=== PATIENT | female | born 1985 | race African-American/Black ===

== ENCOUNTER → 2024-07-01 10:18 | Outpatient (CLI) | payer OTHER, SELFPAY ==
[2024-07-01 12:53] LABS: Urine Chlamydia NOT DETECTED; Urine N gonorrhoeae NOT DETECTED
== END ==
PROVIDERS: Visit Provider Physician Assistant
DX: N89.8 Other specified noninflammatory disorders of vagina (principal)
CPT/HCPCS: 87210; 87491; 87591

== ENCOUNTER → 2024-07-23 15:16 | Outpatient (CLI) | payer OTHER, SELFPAY ==
--- NOTE | 2024-07-23 17:17 | DIAB.GDA ---
Initial Gestational Diabetes Assessment Name: Bernadine Tracey Date: 07/23/24 Time: 335-5p Dx: Type II Diabetes in Provider: Hellen FELIPE: 02/24/25 Weeks: 8-9 Bernadine presents for initial visit for T2DM in . Diagnosed last year per report with hgA1c of 7.2%. [place] Nov 2023 FH of DM with mother and both grandfathers. Started Metformin at diagnosis, however could not tolerate GI upset and changed to Jardiance x 2-3 days before finding out about and switched back to Metformin. Less GI upset since taking with due to constipation assoc with . Despite diet changes does have some elevated pc readings and FBG are consistently elevated. Today she is wanting to know more about nutrition, eating out, and how DM can impact baby. Prepregnancy was checking BG and ranged 80-120mg/dl per report with similar FBG. Has cut out soda and juice. Avoiding cereal and oatmeal, but wanting to know more about if she can incorporate this. Diet Recall: 630-730a: tea with honey 8a: turkey sausage and egg with coconut yogurt and small biscuit OR eggs wiht 4 lumpia 10-11a: granola bar OR trailmix OR fruit x 2 c OR yogurt 1230p: pasta x 1.5c with veggies and protein from home meal prep service 2p: nothing or remainder of fruit OR veggies 5-6p: same as lunch Trying not to eat in the evenings Water x 1 gallon coconut water x 12-24oz Anthropometrics: Ht: 67 Wt: 190# Prepregnancy wt: 190# Physical Activity: Walking dog x 30-60 mins Self-Monitoring Blood Glucose: Checking FBG and 2 hour pc. All FBG are elevated, 3/7 elevated pc breakfast, pc lunch and dinner missing data but in goal. Date Pre Post Pre Post Pre Post HS 07/16 97 07/17 114 230 116 114 07/18 104 144 100 07/19 99 95 07/20 115 100 89 07/21 118 116 79 07/22 109 124 106 07/23 111 99 112 Diabetes Medications: 500mg Metformin BID Pertinent Labs: Reported HgA1c 7.2% 2023 Nutrition Rx: Carbohydrates: Meal: 45-g lunch and dinner; 30g breakfast Snack: 15-30g Nutrition Diagnosis: Nutrition and food related knowledge deficit r/t needing guidance on DM MNT in aeb pt report and diet recall- new Self monitoring deficit r/t missed/forgot SMBG later in the day aeb pt report and SMBG tracking- new Intervention: This participant was very receptive. Provided appropriate educational handouts. Discussed the following topics: T2DM pathophysiology and impact of hyperglycemia on mom and baby Risk for T2DM for baby in the future and potential ways to reduce risk Plate Method, meal timing, carb counting, pairing macronutrients and spreading out CHO for better BG management Blood glucose goals (FBG: <95 and 1 hour <140 mg/dL or 2 hour <120mg/dl); importance of checking 4x per day (FBG and pc) Impact of macronutrients on blood glucose Recommended servings for carbohydrates at meals and snacks Brainstormed appropriate meal plan based on her food preferences Potential for insulin given FBG, brief review of insulin pen and injection technique Fast food intake and nutrition recs Role of physical activity and following provider guidelines for safety Goals: Check BG 4x per day Add protein to each meal/snack Buy some tajik yogurt for snack Follow-up: LEEANN VIRK follow-up in one week. RD will message OB recent BG readings. Giana Vasquez RDN, KADYES Certified Diabetes Care and Drafter Mechanical T: [phone] F: [phone] [email or web address] Thank you for this referral
== END ==
LOC: DIET 15:17
PROVIDERS: Referring Provider Specialist
DX: O24.111 Pre-existing type 2 diabetes mellitus, in pregnancy, first trimester (principal); Z3A.08 8 weeks gestation of pregnancy; Z71.3 Dietary counseling and surveillance
CPT/HCPCS: 97802

== ENCOUNTER → 2024-07-24 13:45 | Outpatient (CLI) | payer OTHER, SELFPAY ==
--- NOTE | 2024-07-24 15:25 | DIAB.GDFU ---
Follow-up Gestational Diabetes Assessment Name: Bernadine Tracey Date: 07/24/24 Time: 150-240p Dx: Gestational Diabetes Provider: Hellen FELIPE: 02/24/25 Weeks: 8-9 Bernadine presents for follow-up visit for T2DM in . Diagnosed last year per report with hgA1c of 7.2%. Has been rx'd insulin based on recent BG. Also rx'd CGM. Wanting to picker / packer today, we did troubleshoot where to picker / packer as there were some barriers with pharmacy. Needs education on insulin injection and CGM use. Anthropometrics: Ht: 67 Wt: 190# Prepregnancy wt: 190# Physical Activity: Walking dog x 30-60 mins Self-Monitoring Blood Glucose: Checking FBG and 2 hour pc. All FBG are elevated, 3/7 elevated pc breakfast, pc lunch and dinner missing data but in goal. Date Pre Post Pre Post Pre Post HS 07/16 97 07/17 114 230 116 114 07/18 104 144 100 07/19 99 95 07/20 115 100 89 07/21 118 116 79 07/22 109 124 106 07/23 111 99 112 Diabetes Medications: 500mg Metformin BID 10u Glargine-- not started yet 3u Lispro ac--- on hold Pertinent Labs: Reported HgA1c 7.2% 2023 Intervention: This participant was very receptive. Provided appropriate educational handouts. Discussed the following topics: CGM education, self placement and precautions Insulin dosing, injection technique, and insulin action s/s for lows and rule of 15 to treat Troubleshooting for insulin access Goals: Check BG 4x per day Add protein to each meal/snack Buy some south korean yogurt for snack Wear CGM Start Glargine Follow-up: LEEANN VIRK follow-up in in 4 days over the phone and 7 days in person. Giana Vasquez RDN, SULLY Certified Diabetes Care and Aluminum Boats Assembler T: [phone] F: [phone] [email or web address] Thank you for this referral
== END ==
LOC: DIET 13:46
PROVIDERS: Referring Provider Specialist
DX: O24.111 Pre-existing type 2 diabetes mellitus, in pregnancy, first trimester (principal); Z3A.08 8 weeks gestation of pregnancy; Z71.3 Dietary counseling and surveillance
CPT/HCPCS: G0108

== ENCOUNTER → 2024-07-30 13:49 | Outpatient (CLI) | payer OTHER, SELFPAY ==
--- NOTE | 2024-07-30 13:54 | DIAB.GDFU ---
Follow-up Gestational Diabetes Assessment Name: Bernadine Tracey Date: 07/30/24 Time: 2-245p Dx: Gestational Diabetes Provider: Jamil FELIPE: 02/24/25 Weeks: 9-10 Bernadine presents for follow-up visit for T2DM in . Diagnosed last year per report with hgA1c of 7.2%. Reports starting Glargine HS two nights ago. FBG improved but still >95mg/dl significantly. Will titrate tonight. Endorses cravings for sweets lately, ie jelly beans, whoppers. Noticed sweetened oats caused elevation, also was low in protein. Increased veggie intake a Likes veggie waffles with chicken sausage Diet recall: 8a: coconut water with meds, oatmeal pkt sweetened 9a: orange or apple 12p: carrots, berries, eng muffin with chicken and pb 2p: rice cake minis with salsa 830p: rios chickpeas, carrots, peas and 1/2c rice 1/2 gallon water Reports trying to move dinner earlier to 7p. Anthropometrics: Ht: 67 Wt: 190# Prepregnancy wt: 190# Physical Activity: Walking dog x 30-60 mins Self-Monitoring Blood Glucose: Wearing CGM. Reports indicate continued elevations in the morning. Pattern of elevations after breakfast as well. All FBG are elevated. All breakfast are elevated. Most lunch and dinner are elevated, though often just barely above or below 140mg/dl. Results based on CGM data after meals at highest peak and FBG as documented by pt. Hoping basal insulin will bring most of these numbers down, if not will initiate meal time insulin next week. Date Pre Post Pre Post Pre Post notes 07/25 132 148 135 147 07/26 110 164 168 07/27 123 169 140 155 07/28 121 193 140 141 started HS insulin 05/31 108 176 131 145 07/30 105 171 TIR: 0% very high 8% .140mg/dl 92% in range 0% low avmg/dl GMI: NA std dev: 16mg/dl variation: 13.7% Diabetes Medications: 500mg Metformin BID 10u Glargine 3u Lispro ac--- on hold Pertinent Labs: Reported HgA1c 7.2% 2023 Nutrition Rx: Carbohydrates: Meal: 45-g lunch and dinner; 30g breakfast Snack: 15-30g Nutrition Diagnosis: Nutrition and food related knowledge deficit r/t needing guidance on DM MNT in aeb pt report and diet recall- in progress Self monitoring deficit r/t missed/forgot SMBG later in the day aeb pt report and SMBG tracking- improved Inconsistent protein intake r/t nutrition knowledge deficit aeb pt report and diet recall- new Intervention: This participant was very receptive. Provided appropriate educational handouts. Discussed the following topics: Insulin titration schedule Different insulin delivery options Adding protein to each meal/snack Carb portions, especially at breakfast Simple carbs impact on BG Carb portions s/s for lows and rule of 15 to treat Troubleshooting for insulin access Goals: Check BG 4x per day- met Add protein to each meal/snack- in progress Buy some kinyarwanda yogurt for snack - in progress Wear CGM- met Start Glargine- met Increase HS insulin by 2-3 u q 2-3 days until FBG <95mg/dl, as discussed- new Add protein to breakfast- new Follow-up: LEEANN VIRK follow-up in one week in person and [address] will check CGM remotely and call pt prn. Giana Vasquez RDN, SULLY Certified Diabetes Care and Wireless Sales Consultant T: [phone] F: [phone] [email or web address] Thank you for this referral
== END ==
DX: O24.414 Gestational diabetes mellitus in pregnancy, insulin controlled (principal); Z3A.09 9 weeks gestation of pregnancy; Z71.3 Dietary counseling and surveillance
CPT/HCPCS: 97803

== ENCOUNTER → 2024-07-30 14:49 | Outpatient (CLI) | payer OTHER, SELFPAY ==
[2024-07-30 15:26] LABS: Add Manual Diff / Slide Review NO; Basophils Absolute Auto 100 /uL (0-100); Basophils Percent Auto 0.7 % (0-2); Eosinophils Absolute Auto 100 /uL (0-450); Eosinophils Percent Auto 1.5 % (2-4); Hematocrit 38.2 % (36-46); Hemoglobin 12.8 g/dL (12.0-16.0); Lymphocytes Absolute Auto 1700 /uL (1100-4500); Lymphocytes Percent Auto 18.6 % (25-40); Mean Corpuscular HGB Conc 33.6 % (30-36); Mean Corpuscular Hemoglobin 27.3 PG (26-34); Mean Corpuscular Volume 81.2 fL (80-100); Monocytes Absolute Auto 600 /uL (0-900); Monocytes Percent Auto 7.3 % (3-14); Neutrophils Absolute Auto 6400 /uL (1500-7000); Neutrophils Percent Auto 71.9 % (50-75); Platelet Count 227 X10^3/uL (150-400); Red Cell Distribution Width 15.4 % (11.6-14.8); White Blood Cell Count 8.9 X10^3/uL (4.5-11.0)
[2024-07-30 15:41] LABS: Hemoglobin A1C% w Est Avg Glu 5.6 % (4.0-6.0)
[2024-07-30 17:26] LABS: Hepatitis B Surface Antigen NEGATIVE s/c (NEGATIVE)
[2024-07-30 17:46] LABS: HIV 1 & 2 Ab/Ag 4th Gen Combo NEGATIVE (NEGATIVE); Hep C Virus Ab w/Reflex Quant NEGATIVE s/c (NEGATIVE)
[2024-08-01 04:36] LABS: RPR Screen Non Reactive (Non Reactive)
[2024-08-01 08:36] LABS: Varicella IgG Antibody Reactive (Non Reactive)
== END ==
PROVIDERS: Referring Provider Family Medicine; Visit Provider Family Medicine
DX: O09.521 Supervision of elderly multigravida, first trimester (principal); O24.414 Gestational diabetes mellitus in pregnancy, insulin controlled; Z3A.09 9 weeks gestation of pregnancy; Z71.3 Dietary counseling and surveillance
CPT/HCPCS: 36415; 80055; 83036; 86787; 86803; 86850; 86900; 86901; 87086; 87389; 97803

== ENCOUNTER → 2024-08-06 09:55 | Outpatient (CLI) | payer OTHER, SELFPAY ==
--- NOTE | 2024-08-14 16:43 | DIAB.GDFU ---
Addendum entered by Giana Vasquez 08/14/24 16:58: 08/14/24 remote check: FBG all <95mg/dl this week except one elevation of 106mg/dl. 3 total elevated postprandial readings, highest 166mg/dl. Otherwise, all <140mg/dl. RD f/u next week. Original Note: Follow-up Gestational Diabetes Assessment Name: Bernadine Tracey Date: 08/06/24 Time: 910-1025 Dx: Type II Diabetes in Provider: Jamil FELIPE: 02/24/25 Weeks: Alicia Colindres presents for follow-up visit for T2DM in . Diagnosed last year per report with hgA1c of 7.2%. Reports up to 16u of basal insulin. Has experienced a low of 66mg/dl, not documented in TIR. Treated with candy. Reports recent breakfast with protein, yogurt and protein waffles. low appetite lately between lunch and dinner. Not use to normally eating so consistently per report. having some cravings for eating out, ie burger. Anthropometrics: Ht: 67 Wt: 190# Prepregnancy wt: 190# Physical Activity: Walking dog x 30-60 mins Self-Monitoring Blood Glucose: Wearing CGM. Similar TIR as last visit. Wearing sample CGM. BG below gleaned from CGM reports indicates elevated BG are frequent. Postprandial are recorded as highest reading in the 1-2 hour range. may need to calibrate CGM. Recommend some fingersticks, especially for FBG. Encouraged titration of insulin to cover FBG. Date Pre Post Pre Post Pre Post notes 07/31 105 147 127 151 08/01 110 141 199 08/02 109 150 151 175 08/03 119 169 08/04 100 141 141 131 08/05 86 142 122 161 08/06 95 136 152 154 TIR: 0% very high 8% .140mg/dl 92% in range 0% low avmg/dl GMI: 6% std dev: 18mg/dl variation: 15.6% Last TIR: 0% very high 8% .140mg/dl 92% in range 0% low avmg/dl GMI: NA std dev: 16mg/dl variation: 13.7% Diabetes Medications: 500mg Metformin BID 16u Glargine 3u Lispro ac--- on hold Pertinent Labs: Reported HgA1c 7.2% 2023 Nutrition Rx: Carbohydrates: Meal: 45-g lunch and dinner; 30g breakfast Snack: 15-30g Nutrition Diagnosis: Nutrition and food related knowledge deficit r/t needing guidance on DM MNT in aeb pt report and diet recall- in progress Inconsistent protein intake r/t nutrition knowledge deficit aeb pt report and diet recall- improved Intervention: This participant was very receptive. Provided appropriate educational handouts. Discussed the following topics: Insulin titration schedule Troubleshooting CGM access Protein shake and snack options Eating out strategies Calibration of CGM Goals: Increase HS insulin by 2-3 u q 2-3 days until FBG <95mg/dl, as discussed- continue Add protein to breakfast- met Log in francine: insulin amt and FBG - new Check a few FBG to calibrate- new Ask base pharmacy for G7 - new Try a burger in moderation- new Follow-up: LEEANN VIRK follow-up in one week via messaging prn after RD checks CGM results remotely and two weeks in person 1:1. Giana Vasquez RDN, SULLY Certified Diabetes Care and Supervisor Fabrication And Assembly T: [phone] F: [phone] [email or web address] Thank you for this referral
== END ==
LOC: DIET 09:56
PROVIDERS: Referring Provider Specialist
DX: O24.111 Pre-existing type 2 diabetes mellitus, in pregnancy, first trimester (principal); Z3A.11 11 weeks gestation of pregnancy; Z71.3 Dietary counseling and surveillance
CPT/HCPCS: 97803

== ENCOUNTER → 2024-08-12 14:04 | Outpatient (CLI) | payer OTHER, SELFPAY ==
[2024-08-12 16:48] LABS: Natera Collection Specimen Collected
== END ==
PROVIDERS: Referring Provider Obstetrics & Gynecology; Visit Provider Obstetrics & Gynecology
DX: O09.521 Supervision of elderly multigravida, first trimester (principal); Z3A.10 10 weeks gestation of pregnancy
CPT/HCPCS: 36415

== ENCOUNTER → 2024-08-18 09:15 | Outpatient (CLI) | payer OTHER, SELFPAY ==
--- NOTE | 2024-08-18 09:35 | DIAB.GDFU ---
Addendum entered by Giana Vasquez 09/01/24 17:09: Received email from pt and reviewed CGM data. FBG mostly in goal and continues with 15u HS basal insulin. Some elevated postprandial numbers, particularly after breafast lately. May need to consider meal time insulin, but pt is currently on vacation and forgot meal time insulin pen at home. Has not needed prandial insulin as of yet. RD f/u in one week. Original Note: Follow-up Gestational Diabetes Assessment Name: Bernadine Tracey Date: 08/18/24 Time: 075-948a Dx: Type II Diabetes in Provider: Jamil FELIPE: 02/24/25 Weeks: sa presents for follow-up visit for T2DM in . Diagnosed last year per report with hgA1c of 7.2%. Reports up to 16u of basal insulin. Increased by 1u last night, and noticed some lows on CGM. States she felt fine. lows per CGM report in the 60s. She treated with jelly beans. Did not check with finger stick to confirm. Previous FBG were in goal, so likely can go back to 15u to avoid lows. Tried her craving for a burger and BG was in goal. In general, feeling less interested in food. Slight nausea reported as well. Foods that she can eat per report: yogurt, fries, fruit, smoothie. Having difficulty finding protein shake discussed last visit. Trying a premade meal service to reduce meal prep. Planning to go on a trip to see family in [place]. Niece is graduating high school. States eating may be different that week. Due to her trip will have to move visit for 3 weeks, instead of [address] will check her CGM 1x pre week over the next two weeks and call her for insulin adjustments prn. She will also messaged RD in two weeks about how she feels things are going. Anthropometrics: Ht: 67 Wt: 189# 08/12/2024 190# 07/16/2024 Prepregnancy wt: 190# Physical Activity: Walking dog x 30-60 mins Self-Monitoring Blood Glucose: Wearing CGM. Improved TIR since last visit. Wearing rx CGM. Getting CGM q 10 days from pharmacy due to insurance barriers. Plans to check the base pharmacy to better access, ie monthly. BG below gleaned from CGM reports indicates elevated BG are frequent. Postprandial are recorded as highest reading in the 1-2 hour range. 2/7 elevated FBG, 2/6 elevated pc breakfast, 1/6 elevated pc lunch, 3/3 elevated pc dinner. Improved BG the last 3-4 days. Date Pre Post Pre Post Pre Post notes 08/12 85 122 120 161 /8 106 165 142 141 /9 93 147 122 164 /10 96 111 106 112 / 80 131 115 08/17 87 124 98 127 08/18 74 117 TIR: 0% very high 4% .140mg/dl 96% in range 0% low avmg/dl GMI: 5.8% std dev: 17mg/dl variation: 16.9% Last TIR: 0% very high 8% .140mg/dl 92% in range 0% low avmg/dl GMI: 6% std dev: 18mg/dl variation: 15.6% Diabetes Medications: 500mg Metformin BID 15-16u Glargine 3u Lispro ac--- on hold Pertinent Labs: Reported HgA1c 7.2% 2023 Intervention: This participant was very receptive. Provided appropriate educational handouts. Discussed the following topics: Insulin titration schedule Troubleshooting CGM access Protein shake types and access Strategies for going on vacation with insulin Goals: Log in francine: insulin amt and FBG - met Check a few FBG to calibrate- met Ask base pharmacy for G7 - in progress Try a burger in moderation- met Reduce back to 15u at this time given lows this morning- new Take one mealtime insulin pen on trip- new Follow-up: LEEANN VIRK follow-up in one and two weeks via messaging after RD checks CGM results remotely and three weeks in person 1:1 due to her vacation. Giana Vasquez RDN, SULLY Certified Diabetes Care and Master Welder T: [phone] F: [phone] [email or web address] Thank you for this referral
== END ==
DX: O24.111 Pre-existing type 2 diabetes mellitus, in pregnancy, first trimester (principal); Z3A.13 13 weeks gestation of pregnancy; Z71.3 Dietary counseling and surveillance; Z79.84 Long term (current) use of oral hypoglycemic drugs; Z79.4 Long term (current) use of insulin
CPT/HCPCS: G0108

== ENCOUNTER → 2024-09-09 11:10 | Outpatient (CLI) | payer OTHER, SELFPAY ==
--- NOTE | 2024-09-09 14:08 | DIAB.GDFU ---
Follow-up Gestational Diabetes Assessment Name: Bernadine Tracey Date: 09/09/24 Time: 1115-12 Dx: Type II Diabetes in Provider: Jamil FELIPE: 02/24/25 Weeks: 16 Bernadine presents for follow-up visit for T2DM in . Diagnosed last year per report with hgA1c of 7.2%. Just back from her trip to see family. Was short by one day with insulin pen needles. Skipped dose one day and BG were elevated after each meal that day during travel. Since that time BG have improved but pc numbers still frequently elevated indicating potential need for meal time insulin. Difficult to determine if BG will improve now that she is back from vacation or if she does need insulin at meals. Reports up to 16u of basal insulin. Increased by 1u recently due to concerns for elevated BG mid day previos days. No FBG <70. some elevated after meal numbers, some r/t food choices and others may be more r/t hormones. Appetite limited due to nausea and sensitivity to scents. Endorses limited acceptable foods at this time, ie fruit, oats, veggies, salads States she is concerned about celiac disease due to bloating. Does not indicate any particular food, ie wheat, associated with bloat. May or may not be r/t . Endorses some constipation and other times soft BM. Diet recall: B: oatmeal and burrito OR 2 small oranges and yogurt OR nothing L: salad +/- small serving of lasagna D: ice cream and chips OR salad +/- small serving of lasagna Anthropometrics: Ht: 67 Wt: 189# 08/12/2024 190# 07/16/2024 Prepregnancy wt: 190# Physical Activity: not discussed today Self-Monitoring Blood Glucose: Wearing CGM. TIR shows increase in hyperglycemia, evident in pc readings. Some lows recorded, however they do seem like false lows. She denies any low symptoms. Has not tested to confirm lows, but seems to get more lows when changing out her sensor. BG below gleaned from CGM reports indicates elevated BG are frequentafter meals, especially breakfast. Postprandial are recorded as highest reading in the 1-2 hour range. 0/7 elevated FBG, 4/5 elevated pc breakfast, 3/6 elevated pc lunch, 3/6 elevated pc dinner. Date Pre Post Pre Post Pre Post notes 09/03 67 167 144 149 09/04 88 129 125 09/05 97 163 164 145 09/06 88 185 161 220 elevations r/t no insulin the night before 09/07 91 127 120 09/08 88 176 139 139 breakfast high CHO intake 09/09 95 132 TIR: 0% very high 7% .140mg/dl 92% in range 1% low avmg/dl GMI: 5.8% std dev: 22mg/dl variation: 21.2% Last TIR: 0% very high 4% .140mg/dl 96% in range 0% low avmg/dl GMI: 5.8% std dev: 17mg/dl variation: 16.9% Diabetes Medications: 500mg Metformin BID 15-16u Glargine 3u Lispro ac--- on hold Pertinent Labs: Reported HgA1c 7.2% 2023 Nutrition Rx: Carbohydrates: Meal: 45-g lunch and dinner; 30g breakfast Snack: 15-30g Nutrition Diagnosis: Nutrition and food related knowledge deficit r/t needing guidance on DM MNT in aeb pt report and diet recall- in progress Intervention: This participant was very receptive. Provided appropriate educational handouts. Discussed the following topics: Insulin titration schedule Potential for adding meal time insulin to breakfast, possibly other meals Checking BG when low but feeling no symptoms Breakfast portions and CHO recs RUle of 15 for low tx review Review of celiac as allergy to gluten/wheat encouraged further discussion with OB r/t excessive bloat BM changes during and recs Review of BG goals and potential for meal time insulin if pc readings >140mg/dl at 1 hour or >120mg/dl at 2 hour Goals: Reduce back to 15u at this time given lows this morning- met/d/c Take one mealtime insulin pen on trip- not met Stay at 16u HS- new Consider adding 2-3 u at breakfast of ac insulin- new Try to keep breakfast at 30g CHO- new Carry low BG tx on you- new Follow-up: LEEANN VIRK follow-up in two weeks, RD out of town next week. Encouraged her to call/message OB office for BG concerns next week prn. She agreed with this plan. Giana Vasquez RDN, SULLY Certified Diabetes Care and Recovery Operator Helper T: [phone] F: [phone] [email or web address] Thank you for this referral
== END ==
DX: O24.112 Pre-existing type 2 diabetes mellitus, in pregnancy, second trimester (principal); Z3A.16 16 weeks gestation of pregnancy; Z71.3 Dietary counseling and surveillance
CPT/HCPCS: 97803

== ENCOUNTER → 2024-09-09 15:06 | Outpatient (CLI) | payer OTHER, SELFPAY ==
[2024-09-12 20:41] LABS: AFP Value 47.1 ng/mL (.); Insulin Dep Diabetes Yes (.); OSBR Risk 1IN 647 (.); Results Report (.); Test Results *Screen Negative* (.)
== END ==
LOC: LAB 15:09
PROVIDERS: Referring Provider Obstetrics & Gynecology; Visit Provider Obstetrics & Gynecology
DX: O24.112 Pre-existing type 2 diabetes mellitus, in pregnancy, second trimester (principal); Z3A.16 16 weeks gestation of pregnancy; Z71.3 Dietary counseling and surveillance
CPT/HCPCS: 36415; 82105; 97803

== ENCOUNTER 2024-09-24 15:10 | Emergency (ER) | payer OTHER, SELFPAY ==
[2024-09-24 15:19] VITALS: BP 138/93; PULSE 85; RESP 16; TEMP 36.9; O2SAT 100; BMI 29.7
--- NOTE | 2024-09-24 16:00 | DI.US.S_ITS ---
PROCEDURE: US OB >= 14 WEEKS FETUS INDICATIONS: abd cramping OUTSIDE/PRIOR DATING DATA: Working FELIPE of 02/24/2025. TECHNIQUE: Real-time scanning was performed of the fetus, with image documentation and biometric measurements. COMPARISON: [facility], US, US OB <= 14 WEEKS FETUS, 08/12/2024, 15:20. FINDINGS: General: A single living intrauterine gestation is present. Presentation: Breech. Placenta: Placental position is anterior , without previa. Amniotic fluid index: 15.9 cm, normal range is 5-24 cm. Single deepest vertical pocket is 5.7 cm. heart rate: 149 beats per minute. Maternal cervical canal: 3.8 cm long. Normal lower limit is 2.5 cm. biometrics: Clinically estimated gestational age: 18 weeks 1 day IMPRESSION: Single live intrauterine measuring 18 weeks 1 day. [place] is within normal limits. We strive to produce accurate, complete, and clear reports of imaging services. To assist us in improving patient care, this report was composed using standard report templates and voice recognition software. Therefore, it may contain abnormal punctuation, insertions and/or omissions. Occasional wrong-word or sound-alike substitutions may occur. Though we review the report and make efforts to correct it, we do recommend that the report be read carefully in proper context to recognize any text inaccuracies. Dictated by: Katt Perez M.D. on 09/24/2024 at 16:55 Approved by: Katt Perez M.D. on 09/24/2024 at 16:56
[2024-09-24 16:21] LABS: Add Manual Diff / Slide Review NO; Basophils Absolute Auto 100 /uL (0-100); Basophils Percent Auto 0.9 % (0-2); Eosinophils Absolute Auto 100 /uL (0-450); Hematocrit 38.5 % (36-46); Hemoglobin 12.9 g/dL (12.0-16.0); Lymphocytes Absolute Auto 1400 /uL (1100-4500); Lymphocytes Percent Auto 16.5 % (25-40); Mean Corpuscular HGB Conc 33.5 % (30-36); Mean Corpuscular Hemoglobin 27.6 PG (26-34); Mean Corpuscular Volume 82.2 fL (80-100); Monocytes Absolute Auto 600 /uL (0-900); Monocytes Percent Auto 7.2 % (3-14); Neutrophils Absolute Auto 6500 /uL (1500-7000); Neutrophils Percent Auto 74.4 % (50-75); Platelet Count 207 X10^3/uL (150-400); Red Blood Cell Count 4.69 X10^6/uL (4.0-5.2); Red Cell Distribution Width 15.4 % (11.6-14.8); White Blood Cell Count 8.8 X10^3/uL (4.5-11.0)
[2024-09-24 16:34] LABS: Alanine Aminotransferase 16 IU/L (<35); Albumin 4.4 g/dL (3.5-5.0); Albumin Globulin Ratio 1.3 (1.0-2.8); Alkaline Phosphatase 72 U/L (38-126); Aspartate Aminotransferase 26 IU/L (14-36); BUN Creatinine Ratio 11.9 (6-22); Bilirubin Total 0.9 mg/dL (0.2-1.3); Blood Urea Nitrogen 7 mg/dL (7-17); Calcium 9.7 mg/dL (8.4-10.2); Carbon Dioxide 22 mmol/L (22-32); Chloride 104 mmol/L (98-107); Estimated Glomerular Filt Rate > 60 mL/min (>60); Globulin 3.5 g/dL (1.7-4.1); Glucose 87 mg/dL (70-99); HEMOLYSIS < 15 (0-50); Potassium 3.6 mmol/L (3.4-5.1); Sodium 135 mmol/L (137-145); Total Protein 7.9 g/dL (6.3-8.2)
--- NOTE | 2024-09-24 16:53 | ED_ITS ---
HPI - Abdominal Pain General Chief Complaint: Abdominal Pain Stated Complaint: severe cramping 18 wks Time Seen by Provider: 09/24/24 16:16 Source: patient Mode of arrival: Wheelchair History of Present Illness HPI narrative: 39-year-old female type 2 diabetic on insulin and metformin, 18 weeks FELIPE February 24 was going to the dietitian appointment today when she did not realize she was experiencing contractions described as tightness cramping sensation but no vaginal bleeding or passing clots at this time and no urinary complaints. Patient denies fever chills chest pain nausea or vomiting diarrhea. No complications with that is far. Other than what is stated 14 point review of system is negative Related Data Home Medications ?Medication ?Instructions ?Recorded ?Confirmed jardiance PO 07/01/24 08/12/24 sertraline 25 mg tablet 75 mg PO DAILY 07/01/2410/30 Lactobacillus rhamnosus GG 5 1 tab PO DAILY 07/08/24 0 08/12/24 billion cell chewable tablet (Hair ScynceZytoprotecs Probiotics) cholecalciferol (vitamin D3) 50 50 mcg PO DAILY 08/12/24 mcg (2,000 unit) capsule inositol 500 mg capsule 1,000 mg PO 07/08/24 5 metformin 500 mg tablet 500 mg PO BID 07/08/2408/12 vitamin-ferrous sulfate tab PO 07/08/2408/12 27 mg iron-folic acid 0.8 mg tablet Previous Rx's ?Medication ?Instructions ?Recorded metronidazole 500 mg tablet 500 mg PO BID #14 tabs dexcom G7GM sensor #3 ea 07/24/24 insulin glargine 100 unit/mL (3 10 unit (0.1 mL) SUBCU T QPM 07/24/24 mL) subcutaneous pen (Lantus Control of blood sugar #3 mL Solostar U-100 Insulin) insulin lispro 100 unit/mL 3 unit (0.03 mL) SUBCUT TID #15 mL 07/27/24 subcutaneous pen pen needle, diabetic 32 gauge x #100 ea 07/27/24 (Advocate Pen Needle) aspirin 81 mg tablet,delayed 81 mg PO DAILY #90 tabs 0 08/12/24 release insulin glargine 100 unit/mL (3 15 unit (0.15 mL) SUBC UT QPM #15 mL 08/12/24 mL) subcutaneous pen (Lantus Solostar U-100 Insulin) Allergies Allergy/AdvReac Type Severity Reaction Status Date / Time apple Allergy Mild ITCHING Verified 09/24/24 15:18 Review of Systems Review of Systems ROS Unobtainable: All systems reviewed & are unremarkable except as noted in HPI and below Patient History Medical History (Updated 09/24/24 @ 17:48 by Pascual Brown DO) Allergies (~2001) Shoulder pain Fractures Chicken pox Gonorrhea Abnormal Pap smear of cervix Sickle cell trait (~2013) Depression with anxiety Seasonal allergies Type 2 diabetes mellitus (~2023) Closed head injury Asthma (~1992) Surgical History (Updated 07/08/24 @ 09:51 by Abby Tavarez RN) History of third molar tooth extraction History of dental surgery Family History (Updated 08/10/24 @ 20:57 by Isis Dawn) Mother Hypertension Hyperlipidemia Diabetes mellitus Depression Anxiety Atrial fibrillation Heart murmur Pacemaker History of hysterectomy Menorrhagia Mental health problem Father Hypertension Joint disease Arthritis Family/Other History of bilateral mastectomy Breast cancer Aunt ADHD Brother Congenital heart defect Grandfather Diabetes mellitus Hyperlipidemia Hypertension Stroke Grandmother Cancer Grandfather Cataracts, bilateral Prostate cancer Diabetes mellitus Glaucoma Dementia Hypertension Grandmother Glaucoma Status post cholecystectomy Hypertension Social History marital status: unmarried,single number of children: 0 household members: spouse lives independently: Yes caregiver/support person: No housing: apartment pets and animals: Yes (dog) education level: college (some college) 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[employer], 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) current occupational exposures/hazards: No (not since becoming ) special gucci needs: No travel history: recent (domestic only) seatbelt use: always water heater temp set < 120 deg: Yes working smoke detector in home: Yes fire extinguisher in home: Yes carbon monox detector in home: Yes firearms in home: No do you feel safe at home: Yes Tobacco: How many years used: 18 second hand exposure: No alcohol intake: former (very occasionally when not ) substance use type: does not use during the past year weight has: increased > 10 lbs well-balanced diet: rarely or never daily servings fruits/ve-1 (1-2) caffeine: Yes (2-3 cup black or green tea/day) Type(s) of exercise: walking Smoking Status: Former smoker Exam Narrative Exam Narrative: GENERAL: [39] year old patient appears stated age. Well-developed patient, in mild distress. HEAD: Atraumatic. Normocephalic. EYES: Pupils equal round and reactive. Extraocular motions intact. No scleral icterus. No injection or drainage. NECK: Trachea midline. Non tender CARDIOVASCULAR: Regular rate and rhythm without murmurs, gallops, or rubs. RESPIRATORY: Clear to auscultation. Breath sounds equal bilaterally. No wheezes, rales, or rhonchi. GASTROINTESTINAL: Abdomen soft, non-tender, nondistended. EXTREMITIES: No edema or joint tenderness. BACK: Nontender without deformity or crepitance. No flank tenderness. NEURO: AOx3. SKIN: No rash or erythema of visible areas Initial Vital Signs Initial Vital Signs: Vital Signs Temperature 98.5 F 09/24/24 15:19 Pulse Rate 85 09/24/24 15:19 Respiratory Rate 16 09/24/24 15:19 Blood Pressure 138/93 H 09/24/24 15:19 Pulse Oximetry 100 09/24/24 15:19 Oxygen Delivery Method Room Air 09/24/24 15:19 Course Orders Ordered: ED Orders 09/24/24 16:00 US OB >= 14 weeks Fetus Stat 09/24/24 16:11 Complete Blood Count AUTO DIFF Stat Comprehensive Metabolic Panel Stat HCG Quantitative /Beta subunit Stat Type and Screen Stat Vital Signs Vital signs: Vital Signs - 8 hr 09/24/24 15:19 Temperature 98.5 F Pulse Rate 85 Respiratory Rate 16 Blood Pressure 138/93 H Pulse Oximetry 100 Oxygen Delivery Method Room Air MDM - Abdominal Pain Lab Data 09/24/24 16:11 09/24/24 16:11 Labs: Lab Results 09/24/24 Range/Units 16:11 WBC 8.8 (4.5-11.0) X10^3/uL RBC 4.69 (4.0-5.2) X10^6/uL Hgb 12.9 (12.0-16.0) g/dL Hct 38.5 (36-46) % MCV 82.2 (80-100) fL MCH 27.6 (26-34) PG MCHC 33.5 (30-36) % RDW 15.4 H (11.6-14.8) % Plt Count 207 (150-400) X10^3/uL Neut % (Auto) 74.4 (50-75) % Lymph % (Auto) 16.5 L (25-40) % [place] % (Auto) 7.2 (3-14) % Eos % (Auto) 1.0 L (2-4) % Baso % (Auto) 0.9 (0-2) % Neut # (Auto) 6500 (4581-1947) /uL Lymph # (Auto) 1400 (0032-3978) /uL [place] # (Auto) 600 (0-900) /uL Eos # (Auto) 100 (0-450) /uL Baso # (Auto) 100 (0-100) /uL Sodium 135 L (137-145) mmol/L Potassium 3.6 (3.4-5.1) mmol/L Chloride 104 (98-107) mmol/L Carbon Dioxide 22 (22-32) mmol/L BUN 7 (7-17) mg/dL Creatinine 0.59 (0.52-1.04) mg/dL Estimated GFR > 60 (>60) mL/min BUN/Creatinine Ratio 11.9 (6-22) Glucose 87 (70-99) mg/dL Calcium 9.7 (8.4-10.2) mg/dL Total Bilirubin 0.9 (0.2-1.3) mg/dL AST 26 (14-36) IU/L ALT 16 (<35) IU/L Alkaline Phosphatase 72 (38-126) U/L Total Protein 7.9 (6.3-8.2) g/dL Albumin 4.4 (3.5-5.0) g/dL Globulin 3.5 (1.7-4.1) g/dL Albumin/Globulin Ratio 1.3 (1.0-2.8) HCG, Quant 31724 mIU/mL Blood Type B Positive Antibody Screen Negative Point of care testing: Urine Dip Bedside Urine Glucose Negative Bedside Urine Bilirubin - Negative Bedside Urine Ketone - Negative Urine Specific [place] 1.010 Bedside Urine Occult Blood - Negative Bedside Urine pH 7.5 Bedside Urine Protein - Negative Bedside Urine Urobilinogen - Negative Bedside Urine Nitrite - Negative Bedside Urine Leukocytes - Negative Esterase Imaging Data US - abdomen: Radiologist's Impression: [address] [address] Ultrasound Report Signed Patient: Bernadine Tracey MR#: [id number] : 1985 Acct:[id number] Age/Sex: 39 / F Date of Service: 09/24/24 Loc: ED Accession Number: [id number] Procedure: US OB >= 14 weeks Fetus Ordering Provider: Pascual Brown D.O. PROCEDURE: US OB >= 14 WEEKS FETUS INDICATIONS: abd cramping OUTSIDE/PRIOR DATING DATA: Working FELIPE of 02/24/2025. TECHNIQUE: Real-time scanning was performed of the fetus, with image documentation and biometric measurements. COMPARISON: [facility], [place], US OB <= 14 WEEKS FETUS, 08/12/2024, 15:20. FINDINGS: General: A single living intrauterine gestation is present. Presentation: Breech. Placenta: Placental position is anterior , without previa. Amniotic fluid index: 15.9 cm, normal range is 5-24 cm. Single deepest vertical pocket is 5.7 cm. heart rate: 149 beats per minute. Maternal cervical canal: 3.8 cm long. Normal lower limit is 2.5 cm. biometrics: Clinically estimated gestational age: 18 weeks 1 day IMPRESSION: Single live intrauterine measuring 18 weeks 1 day. NEWTON is within normal limits. We strive to produce accurate, complete, and clear reports of imaging services. To assist us in improving patient care, this report was composed using standard report templates and voice recognition software. Therefore, it may contain abnormal punctuation, insertions and/or omissions. Occasional wrong-word or sound-alike substitutions may occur. Though we review the report and make efforts to correct it, we do recommend that the report be read carefully in proper context to recognize any text inaccuracies. Dictated by: Katt Perez M.D. on 09/24/2024 at 16:55 MDM Narrative Medical decision making narrative: Vital signs, nurse triage note, medication list, previous ER visits, and all imaging modalities reviewed. Beta quant 33,943 hemoglobin 12.9 LFTs all known sodium 135. Differential diagnosis includes uterine contraction, UTI, constipation, normal . Follow up with OB at next scheduled appointment Discharge Plan Departure Patient Disposition: Home Clinical Impression: Uterine contractions Qualifiers: Weeks of gestation: less than 8 weeks Qualified Code(s): Z3A.01 - Less than 8 weeks gestation of Instructions: Managing Symptoms of Activity Restrictions/Additional Instructions: Return with new or worsening symptoms. Follow up with OBGYN your next scheduled appointment. Prescriptions: No Action sertraline 25 mg tablet 75 mg PO DAILY jardiance PO metronidazole 500 mg tablet 500 mg PO BID Qty: 14 0RF insulin glargine [Lantus Solostar U-100 Insulin] 100 unit/mL (3 mL) insulin pen 10 unit SUBCUT QPM Qty: 3 3RF (DME) dexcom G7GM sensor See Rx Instructions .Route .MEDSUPPLY Qty: 3 6RF Rx Instructions: Change out every 10 days. (DME) pen needle, diabetic [Advocate Pen Needle] 32 gauge x 5/32 needle See Rx Instructions .Route Qty: 100 0RF Rx Instructions: As directed insulin lispro 100 unit/mL insulin pen 3 unit SUBCUT TID Qty: 15 3RF cholecalciferol (vitamin D3) 50 mcg (2,000 unit) capsule 50 mcg PO DAILY metformin 500 mg tablet 500 mg PO BID Culturelle Kids Probiotics 5 billion cell tablet,chewable 1 tab PO DAILY inositol 500 mg capsule 1,000 mg PO vit-ferrous sulfat-FA 27 mg iron- 0.8 mg tablet PO insulin glargine [Lantus Solostar U-100 Insulin] 100 unit/mL (3 mL) insulin pen 15 unit SUBCUT QPM Qty: 15 3RF aspirin 81 mg tablet,delayed release (DR/EC) 81 mg PO DAILY Qty: 90 3RF Referrals: ProviderJessica [Primary Care Provider, Family Practice] Stand Alone Forms: Patient Portal/API
[2024-09-24 17:15] LABS: HCG Quantitative /Beta subunit 33943 mIU/mL
[2024-09-24 17:54] VITALS: BP 141/94; PULSE 73; O2SAT 100
== END 2024-09-24 17:54 | disposition home or self-care (01) ==
PROVIDERS: Emergency Provider Family Medicine
DX: O26.892 Other specified pregnancy related conditions, second trimester (principal); N85.8 Other specified noninflammatory disorders of uterus; Z3A.18 18 weeks gestation of pregnancy
CPT/HCPCS: 76811; 80053; 81003; 84702; 85025; 86850; 86900; 86901; 99281; 99283

== ENCOUNTER → 2024-09-29 14:48 | Outpatient (CLI) | payer OTHER, SELFPAY ==
--- NOTE | 2024-10-01 10:46 | DIAB.GDFU ---
Addendum entered by Giana Vasquez 10/06/24 17:17: 10/06/24: called patient to review CGM reports and insulin dosing. Left a VM to return call when available. BG improved, but this week still having a few elevations after meals without documented meal time insulin doses in CGM. Unclear if doses are skipped or undocumented. FBG seemed to have improved this week with most 72-95mg/dl. F/u with RD on 10/15. Original Note: Follow-up Gestational Diabetes Assessment Name: Bernadine Tracey Date: 09/29/24 Time: 3-4p Dx: Type II Diabetes in Provider: Jamil FELIPE: 02/24/25 Weeks: Hilaria Colindres presents for follow-up visit for T2DM in . Diagnosed last year per report with hgA1c of 7.2%. Last visit was cancelled due to pt experiencing pain, RD took her to the ED upon center recommendation, and she was found to have been experiencing contractions. Reports this did end up resolving same day. Continues at 16u HS. Has not yet added meal time insulin but based on BG likely needs to add this. Last visit we did discuss adding to breakfast. States she is trying to stay well hydrated. Endorses frequent urination. Reports worrying about getting enough nutrients and kcals since she has not gained wt. Has not had any recent wt loss. Likely getting enough nutrients. Diet recall: 8a: Latvian yogurt OR overnight oats x 1/2 c with 2 mandarin oranges 10a: charlie or two mandarins 1130a: salad OR warmed up cold cut sandwich 26-53g CHO +/- 3oz chips and occasional sweet tea 2-3p: yogurt with kiwi 7-8p: other part of cold cut sandwich OR chx salad Caesar OR rice x 1c with kale and shrimp 730-830p: popcorn 80-100oz water adding coconut water and pineapple juice to water for electrolytes per report Did have low na lab, and trying to improve electrolyte intake per report Anthropometrics: Ht: 67 Wt: 189# 08/12/2024 190# 07/16/2024 Prepregnancy wt: 190# Physical Activity: not discussed today Self-Monitoring Blood Glucose: Wearing CGM. TIR shows increase in hyperglycemia, evident in pc readings. Some elevated FBG >95 as well. Encouraged low dose meal time insulin start. Would also benefit from increased evening dose. FBG up from last visit significantly. TIR: 0% very high 14% .140mg/dl 86% in range 0% low <1% very low avmg/dl GMI: 6.1% std dev: 22mg/dl variation: 19.5% Last TIR: 0% very high 7% .140mg/dl 92% in range 1% low avmg/dl GMI: 5.8% std dev: 22mg/dl variation: 21.2% BG below gleaned from CGM reports indicates elevated BG are frequent. Postprandial are recorded as highest reading in the 1-2 hour range. 4/7 elevated FBG, 4/4 elevated pc breakfast, 3/5 elevated pc lunch, 4/5 elevated pc dinner. Today: Date Pre Post Pre Post Pre Post notes 09/23 95 141 154 144 09/24 110 140 189 09/25 111 168 143 09/26 166 122 140 09/27 134 162 173 196 09/28 109 153 156 09/29 92 Last Visit: Date Pre Post Pre Post Pre Post notes 09/03 67 167 144 149 09/04 88 129 125 09/05 97 163 164 145 09/06 88 185 161 220 elevations r/t no insulin the night before 09/07 91 127 120 09/08 88 176 139 139 breakfast high CHO intake 09/09 95 132 Diabetes Medications: 500mg Metformin BID 16u Glargine 3u Lispro ac--- on hold Pertinent Labs: Reported HgA1c 7.2% 2023 Nutrition Rx: Carbohydrates: Meal: 45-g lunch and dinner; 30g breakfast Snack: 15-30g Nutrition Diagnosis: Excessive CHO intake r/t reported worry for low kcal intake aeb pt report and diet recall- new Intervention: This participant was very receptive. Provided appropriate educational handouts. Discussed the following topics: Insulin therapy management, adding meal time insulin Protein recs in CHO portions and recs Discouraged sugar sweetened beverages BG trends and goals Healthy wt in Goals: Stay at 16u HS- met Consider adding 2-3 u at breakfast of ac insulin- not met Try to keep breakfast at 30g CHO- met Carry low BG tx on you- met and continue Add protein to breakfast oats- new Aim for 1/4 of sub if having chips- new Cut out pineapple juice- new Add meal time insulin - new Follow-up: LEEANN VIRK follow-up in one week remotely via messaging or phone and two weeks in person 1:1 Giana Vasquez RDN, SULLY Certified Diabetes Care and Liquor Inspector T: [phone] F: [phone] [email or web address] Thank you for this referral
== END ==
LOC: DIET 14:49
DX: O24.112 Pre-existing type 2 diabetes mellitus, in pregnancy, second trimester (principal); Z3A.19 19 weeks gestation of pregnancy; Z71.3 Dietary counseling and surveillance; Z79.4 Long term (current) use of insulin; Z79.84 Long term (current) use of oral hypoglycemic drugs
CPT/HCPCS: 97803

== ENCOUNTER → 2024-10-15 07:49 | Outpatient (CLI) | payer OTHER, SELFPAY ==
--- NOTE | 2024-10-15 07:51 | DI.US.S_ITS ---
PROCEDURE: US OB >= 14 WEEKS FETUS INDICATIONS: 20 week anatomy scan OUTSIDE/PRIOR DATING DATA: Last menstrual period (LMP): 05/20/2024 LMP-based estimated date of delivery (FELIPE): 02/24/2025 First dating scan (date and location): 07/16/2024 Estimated date of delivery (FELIPE) from first dating scan: 02/26/2025. The calculations are made using the working FELIPE of 02/24/2025. TECHNIQUE: Real-time scanning was performed of the fetus, with image documentation and biometric measurements. Endovaginal scanning: Not performed COMPARISON: [facility], OB >= 14 WEEKS FETUS, 09/24/2024, 16:12. FINDINGS: General: A single living intrauterine gestation is present. Presentation: Vertex Placenta: Placental position is anterior, without previa. Amniotic fluid index: 19.3 cm, normal range is 5-24 cm. Single deepest vertical pocket is 5.6 cm. heart rate: 143 beats per minute. Maternal cervical canal: 4.7 cm long. Normal lower limit is 2.5 cm. biometrics: Biparietal diameter: 5.0 cm, 21 weeks, 2 days. Head circumference: 18.1 cm, 20 weeks, 4 days. Abdominal circumference: 17.5 cm, 22 weeks, 3 days. Femur length: 3.7 cm, 21 weeks, 5 days. Clinically estimated gestational age: 21 weeks, 1 day Composite gestational age from present scan: 21 weeks, 4 days Estimated weight and percentile: 46.1 cm, 84% Anatomic survey: Neuro: Ventricles are non-dilated at less than 10 mm. Cisterna magna is normal at 3-11 mm. Cerebellum is normal in size and morphology. Nuchal skin fold: Normal at less than 6 mm between 14-21 weeks gestational age. Face: Nose and lips, facial profile are normal. Spine: No evidence for spina bifida. Heart: 4-chambered heart is present, with normal ventricular outflow tracts. Diaphragm: Diaphragm is intact. Stomach: Left-sided stomach is present. Kidneys: No hydronephrosis. Normal is less than 5 mm in 2nd trimester, less than 7 mm in 3rd trimester. Cord: 3-vessel cord has orthotopic insertion. Bladder: Normal in size. Extremities: All 4 extremities identified. IMPRESSION: 1. Single live intrauterine gestation with fetus in vertex presentation. heart rate is 143 beats per minute. Normal [place] at 19.3 cm. 2. Normal growth. Estimated weight is at 84%. 3. Normal anatomic survey. We strive to produce accurate, complete, and clear reports of imaging services. To assist us in improving patient care, this report was composed using standard report templates and voice recognition software. Therefore, it may contain abnormal punctuation, insertions and/or omissions. Occasional wrong-word or sound-alike substitutions may occur. Though we review the report and make efforts to correct it, we do recommend that the report be read carefully in proper context to recognize any text inaccuracies. Dictated by: Gage Kang M.D. on 10/15/2024 at 14:18 Approved by: Gage Kang M.D. on 10/15/2024 at 14:31
== END ==
PROVIDERS: Referring Provider Obstetrics & Gynecology; Visit Provider Obstetrics & Gynecology
DX: Z36.89 Encounter for other specified antenatal screening (principal); O24.112 Pre-existing type 2 diabetes mellitus, in pregnancy, second trimester; Z79.4 Long term (current) use of insulin; Z79.84 Long term (current) use of oral hypoglycemic drugs; Z3A.21 21 weeks gestation of pregnancy
CPT/HCPCS: 76811; 97803

== ENCOUNTER → 2024-10-15 07:51 | Outpatient (CLI) | payer OTHER, SELFPAY ==
--- NOTE | 2024-10-15 10:37 | DIAB.GDFU ---
Follow-up Gestational Diabetes Assessment Name: Bernadine Tracey Date: 10/15/24 Time: 910-10a Dx: Type II Diabetes in Provider: Jamil FELIPE: 02/24/25 Weeks: 21 Bernadine presents for follow-up visit for T2DM in . Diagnosed last year per report with hgA1c of 7.2%. Has increased HS insulin to 17u. Has had some elevated FBG this week. States she has not consistently been taking meal time insulin, but has been taking 5u with larger meals per report. Based on recent BG, would benefit from consistent meal time insulin. Reports improved appetite recently resulting in high CHO intake, ie fast food and sugar beverages. Diet recall: 930-10a: Syrian yogurt with fruit OR 1/2 pkt oatmeal with yogurt or fruit OR breakfast bowl with turkey, eggs, potatoes 11a-1p: Ramen pkt with veggies and eggs OR <1c rice with rios sn: chips and dip OR trail mix x /4-1/ 6-9p: fast food (sandwich with medium fries and sprite) water coconut water soda Anthropometrics: Ht: 67 Wt: 195# 10/2024 189# 08/12/2024 190# 07/16/2024 Prepregnancy wt: 190# Physical Activity: not discussed today Self-Monitoring Blood Glucose: Wearing CGM. TIR shows similar TIR as last visit. excessive FBG above goal and frequent elevations after meals. Some false lows with CGM sensor failure TIR: 0% very high 14% .140mg/dl 85% in range 1% low <1% very low avmg/dl GMI: 6.1% std dev: 22mg/dl variation: 19.5% Last TIR: 0% very high 14% .140mg/dl 86% in range 0% low <1% very low avmg/dl GMI: 6.1% std dev: 22mg/dl variation: 19.5% BG below gleaned from CGM reports indicates elevated BG are frequent. Postprandial are recorded as highest reading in the 1-2 hour range. 4/5 elevated FBG, 3/5 elevated pc breakfast, 2/4 elevated pc lunch, 4/5 elevated pc dinner. Improved FBG but still elevated. Today: Date Pre Post Pre Post Pre Post notes 10/09 114 122 184 144 10/10 107 147 121 154 10/11 173 180 140 10/12 102 179 136 148 7/8 96 7/ 180 10/15 84 128 Last Visit: Date Pre Post Pre Post Pre Post notes 09/23 95 141 154 144 09/24 110 140 189 09/25 111 168 143 09/26 166 122 140 09/27 134 162 173 196 09/28 109 153 156 09/29 92 Diabetes Medications: 500mg Metformin BID 17u Glargine 5u Lispro ac 0-1x per day Pertinent Labs: Reported HgA1c 7.2% 2023 Nutrition Rx: Carbohydrates: Meal: 45-g lunch and dinner; 30g breakfast Snack: 15-30g Nutrition Diagnosis: Excessive CHO intake r/t improved appetite and increased fast food intake aeb diet recall and pt report Intervention: This participant was very receptive. Provided appropriate educational handouts. Discussed the following topics: Insulin therapy management, adding meal time insulin more consistently CHO portions and recs Discouraged sugar sweetened beverages BG trends and goals Eating out recommendations Goals: Add protein to breakfast oats- in progress Aim for 1/4 of sub if having chips- continue Cut out pineapple juice- met Add meal time insulin - in progress Avoid sugar beverages- new If FBG >95 over the next two days, increase HS insulin by 2u- new Add 5-8u meal time insulin ac consistently - new Follow-up: LEEANN VIRK follow-up in one week remotely via messaging or phone and two weeks in person 1:1 Giana Vasquez RDN, SULLY Certified Diabetes Care and Steel Die Engraver T: [phone] F: [phone] [email or web address] Thank you for this referral
== END ==
DX: O24.112 Pre-existing type 2 diabetes mellitus, in pregnancy, second trimester (principal); Z79.4 Long term (current) use of insulin; Z79.84 Long term (current) use of oral hypoglycemic drugs
CPT/HCPCS: 97803

== ENCOUNTER → 2024-10-30 10:04 | Outpatient (CLI) | payer OTHER, SELFPAY ==
--- NOTE | 2024-10-30 16:57 | DIAB.GDFU ---
Addendum entered by Giana Vasquez 10/30/24 17:31: Note last week RD had a phone call with pt and reviewed BG remotely with much improved BG results. This week marked significant increase. Will continue to help provide titration recs. Original Note: Follow-up Gestational Diabetes Assessment Name: Bernadine Tracey Date: 10/30/24 Time: 1010-1105a Dx: Type II Diabetes in Provider: Jamil FELIPE: 02/24/25 Weeks: 23 Bernadine presents for follow-up visit for T2DM in . Diagnosed last year per report with hgA1c of 7.2%. Has increased HS insulin to 19u. Has had some elevated FBG this week. Has started taking meal time insulin more consistently, up to 11u per meal, though still having significant elevations. Seems BG have increased likely r/t increased hormones in second trimester. States she worries if she is getting enough nutrition for baby. Recent US show 84%ile and normal [place]. Wt gain seems adequate at this time with +5# since prepregnancy wt. Has made drastic changes to her diet since learning she was , including more healthy options. Likely getting enough nutrition per diet recall and anthropometrics. Diet recall: 930-10a: 1c scramble with turkey sausage, egg, veggies, brown rice 12-1p: 1c turkey, veggies, pasta 1230-130p: large charlie x 1-2 3-4p: unspecified amount of applejacks 6-8p: same as lunch HS: nothing or more applejacks cereal dry water smoothies for breakfast sometimes Juice limited but still consumed Anthropometrics: Ht: 67 Wt: 195# 10/2024 189# 08/12/2024 190# 07/16/2024 Prepregnancy wt: 190# Physical Activity: Considering more activity. Limited by fatigue. Does some yoga ball exercises. Self-Monitoring Blood Glucose: Wearing CGM. TIR shows similar TIR as last visit. excessive FBG above goal and frequent elevations after meals this weeks. Some false lows with CGM sensor but also one confirmed low of 61mg/dl. TIR: 0% very high 12% .140mg/dl 86% in range 2% low 0% very low avmg/dl GMI: 5.9% std dev: 26mg/dl variation: 23.7% Last TIR: 0% very high 14% .140mg/dl 85% in range 1% low <1% very low avmg/dl GMI: 6.1% std dev: 22mg/dl variation: 19.5% BG below gleaned from CGM reports indicates elevated BG are frequent. Postprandial are recorded as highest reading in the 1-2 hour range. 5/7 elevated FBG, 4/6 elevated pc breakfast, 4/5 elevated pc lunch, 5/6 elevated pc dinner. Today: Date Pre Post Pre Post Pre Post notes 10/24 137 122 138 185 10/25 85 138 186 159 10/26 123 188 166 158 10/27 105 182 175 131 10/28 96 151 119 154 10/29 92 171 227 10/30 110 156 Last Visit: Date Pre Post Pre Post Pre Post notes 10/09 114 122 184 144 10/10 107 147 121 154 10/11 173 180 140 10/12 102 179 136 148 10/13 96 10/14 180 10/15 84 128 Diabetes Medications: 500mg Metformin BID 19u Glargine 10-11u Lispro ac Pertinent Labs: Reported HgA1c 7.2% 2023 Nutrition Rx: Carbohydrates: Meal: 45-g lunch and dinner; 30g breakfast Snack: 15-30g Nutrition Diagnosis: Excessive CHO intake r/t improved appetite and increased fast food intake aeb diet recall and pt report- in progress Intervention: This participant was very receptive. Provided appropriate educational handouts. Discussed the following topics: Insulin therapy management, insulin titration CHO portions and recs Discouraged sugar sweetened beverages BG trends and goals Snack ideas Physical activity Healthy wt gain for Healthy eating and nutrients during Goals: Add meal time insulin - met Avoid sugar beverages- improved/in progress If FBG >95 over the next two days, increase HS insulin by 2u- met Add 5-8u meal time insulin ac consistently - met Increase to 22u HS and add 3-5u on Saturday pending FBG - new Measure snack and keep to <1c if having dry cereal- new Add protein to snacks- new try step machine for activity- new Follow-up: LEEANN VIRK follow-up in one week remotely via phone and two weeks in person 1:1. Sees OB next week. Likely needs more aggressive insulin titration at this point in . Will continue to follow-up weekly or more. Giana Vasquez RDN, [facility] Certified Diabetes Care and Product Management Manager T: [phone] F: [phone] [email or web address] Thank you for this referral
== END ==
PROVIDERS: Referring Provider Obstetrics & Gynecology
DX: O24.112 Pre-existing type 2 diabetes mellitus, in pregnancy, second trimester (principal); Z3A.23 23 weeks gestation of pregnancy; Z71.3 Dietary counseling and surveillance; Z79.4 Long term (current) use of insulin; Z79.84 Long term (current) use of oral hypoglycemic drugs
CPT/HCPCS: 97803

== ENCOUNTER → 2024-11-04 15:39 | Outpatient (CLI) | payer OTHER, SELFPAY ==
[2024-11-04 17:08] LABS: Hematocrit 35.0 % (36-46); Hemoglobin 12.1 g/dL (12.0-16.0)
== END ==
LOC: LAB 15:39
PROVIDERS: Referring Provider Obstetrics & Gynecology; Visit Provider Obstetrics & Gynecology
DX: Z34.82 Encounter for supervision of other normal pregnancy, second trimester (principal); Z3A.25 25 weeks gestation of pregnancy
CPT/HCPCS: 85014; 85018

== ENCOUNTER → 2024-11-13 15:07 | Outpatient (CLI) | payer OTHER, SELFPAY ==
--- NOTE | 2024-11-13 15:09 | DIAB.GDFU ---
Follow-up Gestational Diabetes Assessment Name: Bernadine Tracey Date: 11/13/24 Time: 310-350p Dx: Type II Diabetes in Provider: Jamil FELIPE: 02/24/25 Weeks: 25-26 Bernadine presents for follow-up visit for T2DM in . Diagnosed last year per report with hgA1c of 7.2%. Has increased HS insulin to 28-30u. Has had some elevated FBG this week and postprandial. Increased ac insulin to 18-20u. Seems BG have increased likely r/t increased hormones in second trimester. Has [facility] appt next Saturday. Hoping for insulin pump support from [facility] in order to reduce MDI burden and improve BG results with changing insulin needs. Pt is agreeable to this plan and will bring up with provider. Has questions about injecting insulin and burning sensation. Seems to occur with cold insulin directly from refrigerator. Has had a low recently at night. Treated with juice appropriately. s. Anthropometrics: Ht: 67 Wt: 195# 10/2024 189# 08/12/2024 190# 07/16/2024 Prepregnancy wt: 190# Physical Activity: Considering more activity. Limited by fatigue. Does some yoga ball exercises. Self-Monitoring Blood Glucose: Wearing CGM. TIR shows increase in hyperglycemia. TIR: 0% very high 22% .140mg/dl 76% in range 2% low <1% very low avmg/dl GMI: 6.2% std dev: 28mg/dl variation: 23% Last TIR: 12% .140mg/dl 86% in range 2% low 0% very low avmg/dl GMI: 5.9% std dev: 26mg/dl variation: 23.7% BG below gleaned from CGM reports indicates elevated BG are frequent. Postprandial are recorded as highest reading in the 1-2 hour range. Even with increased insulin dosing she is experiencing excessive hyperglycemia. Today: Date Pre Post Pre Post Pre Post notes 11/07 129 157 177 8/ 105 147 156 158 8/ 105 144 155 161 8/ 81 127 137 152 8/ 100 152 122 117 11/12 102 180 155 157 11/13 99 130 169 Last Visit: Date Pre Post Pre Post Pre Post notes 10/24 137 122 138 185 10/25 85 138 186 159 10/26 123 188 166 158 10/27 105 182 175 131 10/28 96 151 119 154 10/29 92 171 227 10/30 110 156 Diabetes Medications: 500mg Metformin BID 28-30u Glargine 18-20u Lispro ac Pertinent Labs: Reported HgA1c 7.2% 2023 Intervention: This participant was very receptive. Provided appropriate educational handouts. Discussed the following topics: Insulin therapy management, insulin titration CHO portions and recs BG trends and goals Insulin pump potential: types, pros/cons, precautions Goals: Increase to 22u HS and add 3-5u on Saturday pending FBG - met Measure snack and keep to <1c if having dry cereal- not discussed Add protein to snacks- in progress try step machine for activity- in progress Leave insulin at room temp x 30 days per pen- new HS snack prn- new Chat with [facility] about potential for insulin pump- new Follow-up: LEEANN VIRK follow-up in one week remotely and in person in two weeks. Giana Vasquez RDN, [facility] Certified Diabetes Care and Hand Router Operator T: [phone] F: [phone] [email or web address] Thank you for this referral
== END ==
LOC: DIET 15:07
DX: O24.112 Pre-existing type 2 diabetes mellitus, in pregnancy, second trimester (principal); Z71.3 Dietary counseling and surveillance; Z79.4 Long term (current) use of insulin; Z79.84 Long term (current) use of oral hypoglycemic drugs; Z3A.25 25 weeks gestation of pregnancy
CPT/HCPCS: G0108